=== PATIENT | male | born 1945 | race Caucasian/White ===

== ENCOUNTER → 2016-06-05 | Outpatient (CLI) | payer MEDICARE, OTHER ==
[~2016-06-05] MED LIST: ACET-2247 PO; DIVA500T35 PO; DIVA500T52 PO; LITH300C3 PO; LITH300CRT PO; MEGE400O4 PO; OLAN10TA3 PO; OLAN5TAB2 PO; PALI6 PO; PANT40TA25 PO; PREG50 PO
== END | disposition home or self-care (01) ==
LOC: RADPV 11:03
PROVIDERS: ATTEND Orthopaedic Surgery
DX: S52.131A Displaced fracture of neck of right radius, initial encounter for closed fracture (principal)

== ENCOUNTER → 2016-06-27 | Outpatient (CLI) | payer MEDICARE, OTHER | END | disposition home or self-care (01) | LOC: RADPV 13:50 | PROVIDERS: ATTEND Orthopaedic Surgery | DX: S52.124D Nondisplaced fracture of head of right radius, subsequent encounter for closed fracture with routine healing (principal) ==

== ENCOUNTER 2016-07-18 15:24 | Inpatient (IN) | payer MEDICARE, MEDICAID ==
[~2016-07-18] VITALS: Ht 167.6 cm; Wt 63.5 kg
[~2016-07-18 15:24] MED LIST changes: -ACET-2247 PO; -DIVA500T35 PO; -LITH300C3 PO; -MEGE400O4 PO; -OLAN10TA3 PO; -OLAN5TAB2 PO; -PANT40TA25 PO
[2016-07-18] MEDS ORDERED: OLAN5TAB2 PO (16:05)
[2016-07-18 16:09] LABS: BASOPHILS % (AUTO) 0.3 % (0.0-2.0); EOSINOPHILS % (AUTO) 1.1 % (1.0-6.0); HEMATOCRIT 44.4 % (41-53); HEMOGLOBIN 14.8 g/dL (13.5-17.5); LYMPHOCYTES # (AUTO) 0.9 K/uL (1.0-4.8); LYMPHOCYTES % (AUTO) 14.8 % (22.0-44.0); MEAN CORPUSCULAR HEMOGLOBIN 31.1 pg (26.0-34.0); MEAN CORPUSCULAR HGB CONC 33.4 G/dL (31.0-37.0); MEAN CORPUSCULAR VOLUME 93 fL (80-100); MONOCYTES # (AUTO) 0.4 K/uL (0.1-1.0); MONOCYTES % (AUTO) 6.4 % (2.0-9.0); NEUTROPHILS # (AUTO) 4.8 K/uL (1.8-7.7); NEUTROPHILS % (AUTO) 77.4 % (40.0-70.0); PLATELET COUNT (AUTO) 143 K/uL (150-450); RED BLOOD CELL COUNT(AUTO) 4.76 MIL/uL (4.50-5.90); RED CELL DISTRIBUTION WIDTH 12.9 % (11.5-14.5); WHITE BLOOD COUNT (AUTO) 6.2 K/uL (4.5-11.0)
[2016-07-18 16:26] LABS: ANION GAP 8 mmol/L (8-16); CARBON DIOXIDE 28 mmol/L (22-29); CHLORIDE 106 mmol/L (98-107); GLOMERULAR FILTR. RATE CALC 46 mL/min (>60); SODIUM SERUM 142 mmol/L (136-145); UREA NITROGEN, BLOOD 17 mg/dL (7-18)
[2016-07-18] MEDS ORDERED: LORazepam 2 MG TABLET PO PRN (16:45)
[2016-07-18] MEDS ORDERED: HALOPERIDOL 5 MG TABLET PO PRN (16:45)
[2016-07-18 16:47] LABS: ALANINE AMINOTRANSFERASE 16 U/L (12-78); ALBUMIN 3.8 g/dL (3.4-5.0); ASPARTATE AMINOTRANSFERASE 16 U/L (15-37); BILIRUBIN,TOTAL 0.5 mg/dL (0.1-1.0); TOTAL PROTEIN, SERUM 7.2 g/dL (6.4-8.2)
[2016-07-18 16:54] LABS: VALPROIC ACID < 3 mcg/mL (50-100)
[2016-07-18] MEDS ORDERED: LORazepam 1 MG TABLET PO ONE ×2 (17:00→19:30)
[2016-07-18 17:10] LABS: LITHIUM < 0.20 mmol/L (0.60-1.20)
[2016-07-18] MEDS ORDERED: CloNIDine HCL 0.1 MG TABLET PO ONE (17:45)
[2016-07-18 20:29] VITALS: BP 107/71
[2016-07-18 20:38] VITALS: BP 107/64
[2016-07-19 06:32] VITALS: BP 111/72
[2016-07-19 08:16] VITALS: BP 101/60
[2016-07-19 16:02] VITALS: BP 137/77
[2016-07-19] MEDS: LITHIUM CARBONATE 300 MG ER TABLET PO SCH (17:45)
[2016-07-19] MEDS: OLANZapine 10 MG TABLET PO SCH (17:45)
[2016-07-19] MEDS: DIVALPROEX SODIUM 500 MG ER TABLET PO SCH (20:51)
[2016-07-19] MEDS ORDERED: IBUPROFEN 400 MG TABLET PO PRN (21:15)
[2016-07-19] MEDS ORDERED: ACETAMINOPHEN 325 MG TABLET PO PRN (21:15)
[2016-07-19] MEDS ORDERED: ALBUTEROL SULFATE HFA 90 MCG/PUFF 8 GM INHALER IH PRN (21:15)
[2016-07-20 01:00] VITALS: BP 130/82
[2016-07-20] MEDS: ZOLPIDEM TARTRATE 10 MG TABLET PO PRN (01:05)
[2016-07-20 08:01] VITALS: BP 131/74
[2016-07-20] MEDS: OLANZapine 10 MG TABLET PO SCH (09:00)
[2016-07-20] MEDS: LITHIUM CARBONATE 300 MG ER TABLET PO SCH ×2 (09:00→16:48)
[2016-07-20 16:01] VITALS: BP 132/72
[2016-07-20] MEDS: DIVALPROEX SODIUM 500 MG ER TABLET PO SCH (20:45)
[2016-07-21 04:49] VITALS: BP 141/78
[2016-07-21 08:02] VITALS: BP 110/60
[2016-07-21] MEDS: LITHIUM CARBONATE 300 MG ER TABLET PO SCH ×2 (09:00→17:00)
[2016-07-21] MEDS: OLANZapine 10 MG TABLET PO SCH (09:00)
[2016-07-21 16:07] VITALS: BP 139/100
[2016-07-21] MEDS: DIVALPROEX SODIUM 500 MG ER TABLET PO SCH (20:27)
[2016-07-21] MEDS: ZOLPIDEM TARTRATE 10 MG TABLET PO PRN (20:58)
[2016-07-22 01:55] VITALS: BP 132/84
[2016-07-22 08:02] VITALS: BP 120/87
[2016-07-22] MEDS: LITHIUM CARBONATE 300 MG ER TABLET PO SCH ×2 (09:00→17:00)
[2016-07-22] MEDS: OLANZapine 10 MG TABLET PO SCH (09:00)
[2016-07-22] MEDS ORDERED: PERMETHRIN 1% 60 ML LOTION TP ONE (16:30)
[2016-07-22] MEDS: LORazepam 1 MG TABLET PO PRN (17:05)
[2016-07-22 19:03] VITALS: BP 120/76
[2016-07-22] MEDS: DIVALPROEX SODIUM 500 MG ER TABLET PO SCH (20:58)
[2016-07-22] MEDS: DiphenhydrAMINE/ZINC ACET 30 GM CREAM TP PRN (22:41)
[2016-07-23 00:21] VITALS: BP 130/80
[2016-07-23 08:01] VITALS: BP 120/70
[2016-07-23] MEDS: LITHIUM CARBONATE 300 MG ER TABLET PO SCH ×2 (09:00→17:00)
[2016-07-23] MEDS: OLANZapine 10 MG TABLET PO SCH (09:00)
[2016-07-23 16:01] VITALS: BP 135/85
[2016-07-23] MEDS: LORazepam 1 MG TABLET PO PRN ×2 (17:35→21:40)
[2016-07-23] MEDS: DIVALPROEX SODIUM 500 MG ER TABLET PO SCH (21:00)
[2016-07-24 07:23] VITALS: BP 129/83
[2016-07-24 08:28] VITALS: BP 128/81
[2016-07-24] MEDS: LITHIUM CARBONATE 300 MG ER TABLET PO SCH ×2 (08:35→17:00)
[2016-07-24] MEDS: OLANZapine 10 MG TABLET PO SCH (08:35)
[2016-07-24 10:35] VITALS: BP 148/81
[2016-07-24] MEDS: DiphenhydrAMINE/ZINC ACET 30 GM CREAM TP PRN (10:52)
[2016-07-24 19:41] VITALS: BP 137/82
[2016-07-24] MEDS: DIVALPROEX SODIUM 500 MG ER TABLET PO SCH (20:34)
[2016-07-25 06:36] VITALS: BP 137/77
[2016-07-25] MEDS: LITHIUM CARBONATE 300 MG ER TABLET PO SCH ×2 (09:00→17:00)
[2016-07-25] MEDS: OLANZapine 10 MG TABLET PO SCH (09:00)
[2016-07-25] MEDS: DOCUSATE SODIUM 100 MG CAPSULE PO PRN (09:52)
[2016-07-25] MEDS ORDERED: MAGNESIUM HYDROXIDE SUSPENSION 30 ML UDCUP PO PRN (16:00)
[2016-07-25 16:01] VITALS: BP 139/80
[2016-07-25] MEDS: MAGNESIUM HYDROXIDE SUSPENSION 30 ML UDCUP PO PRN (17:03)
[2016-07-25] MEDS: DIVALPROEX SODIUM 500 MG ER TABLET PO SCH (20:38)
[2016-07-26 06:26] VITALS: BP 129/75
[2016-07-26 08:19] VITALS: BP 163/79
[2016-07-26] MEDS: OLANZapine 10 MG TABLET PO SCH (08:33)
[2016-07-26] MEDS: LITHIUM CARBONATE 300 MG ER TABLET PO SCH ×2 (08:33→17:00)
[2016-07-26 16:03] VITALS: BP 134/84
[2016-07-26] MEDS: DIVALPROEX SODIUM 500 MG ER TABLET PO SCH (21:00)
[2016-07-27 05:42] VITALS: BP 137/87
[2016-07-27 08:20] VITALS: BP 144/88
[2016-07-27] MEDS: LITHIUM CARBONATE 300 MG ER TABLET PO SCH ×2 (09:00→17:00)
[2016-07-27] MEDS: OLANZapine 10 MG TABLET PO SCH (09:00)
[2016-07-27 16:35] VITALS: BP 147/83
[2016-07-27] MEDS: DIVALPROEX SODIUM 500 MG ER TABLET PO SCH (20:35)
[2016-07-27] MEDS: ZOLPIDEM TARTRATE 10 MG TABLET PO PRN (20:48)
[2016-07-28] MEDS: OLANZapine 10 MG TABLET PO SCH ×2 (08:15→09:00)
[2016-07-28] MEDS: LITHIUM CARBONATE 300 MG ER TABLET PO SCH ×3 (08:15→17:00)
[2016-07-28] MEDS: ZOLPIDEM TARTRATE 10 MG TABLET PO PRN (20:51)
[2016-07-28] MEDS: DIVALPROEX SODIUM 500 MG ER TABLET PO SCH (21:00)
[2016-07-29 05:14] VITALS: BP 129/85
[2016-07-29 08:01] VITALS: BP 137/92
[2016-07-29] MEDS: OLANZapine 10 MG TABLET PO SCH (09:00)
[2016-07-29] MEDS: LITHIUM CARBONATE 300 MG ER TABLET PO SCH ×2 (09:00→16:35)
[2016-07-29 16:00] VITALS: BP 140/93
[2016-07-29] MEDS: DIVALPROEX SODIUM 500 MG ER TABLET PO SCH (20:12)
[2016-07-30 08:09] VITALS: BP 132/81
[2016-07-30] MEDS ORDERED: ONDANSETRON HCL 4 MG TABLET PO PRN (08:30)
[2016-07-30] MEDS: OLANZapine 10 MG TABLET PO SCH (09:00)
[2016-07-30] MEDS: LITHIUM CARBONATE 300 MG ER TABLET PO SCH ×2 (09:00→16:33)
[2016-07-30 16:02] VITALS: BP 144/88
[2016-07-30] MEDS: DiphenhydrAMINE/ZINC ACET 30 GM CREAM TP PRN (19:00)
[2016-07-30] MEDS: MAGNESIUM HYDROXIDE SUSPENSION 30 ML UDCUP PO PRN (20:15)
[2016-07-30] MEDS: DIVALPROEX SODIUM 500 MG ER TABLET PO SCH (20:45)
[2016-07-30] MEDS: LORazepam 1 MG TABLET PO PRN (22:42)
[2016-07-31 00:16] VITALS: BP 101/62
[2016-07-31] MEDS: DOCUSATE SODIUM 100 MG CAPSULE PO PRN (06:06)
[2016-07-31 08:25] VITALS: BP 106/64
[2016-07-31] MEDS: OLANZapine 10 MG TABLET PO SCH (09:00)
[2016-07-31] MEDS: LITHIUM CARBONATE 300 MG ER TABLET PO SCH ×2 (09:00→17:00)
[2016-07-31] MEDS: MAGNESIUM HYDROXIDE SUSPENSION 30 ML UDCUP PO PRN (09:42)
[2016-07-31 16:01] VITALS: BP 130/87
[2016-07-31] MEDS: DIVALPROEX SODIUM 500 MG ER TABLET PO SCH (20:36)
[2016-08-01 00:40] VITALS: BP 121/85
[2016-08-01] MEDS: LITHIUM CARBONATE 300 MG ER TABLET PO SCH ×2 (08:20→17:00)
[2016-08-01 08:21] VITALS: BP 143/79
[2016-08-01] MEDS: OLANZapine 10 MG TABLET PO SCH (08:21)
== END 2016-08-01 18:00 | disposition home or self-care (01) | DRG 885 ==
LOC: EMS 15:25 → B2X 17:09
PROVIDERS: ADMIT Psychiatry & Neurology Psychiatry; ATTEND Psychiatry & Neurology Psychiatry
DX: F25.9 Schizoaffective disorder, unspecified (principal); R45.851 Suicidal ideations; G47.00 Insomnia, unspecified; I10 Essential (primary) hypertension; Z96.641 Presence of right artificial hip joint; J44.9 Chronic obstructive pulmonary disease, unspecified; K21.9 Gastro-esophageal reflux disease without esophagitis; F22 Delusional disorders; F17.210 Nicotine dependence, cigarettes, uncomplicated; F32.9 Major depressive disorder, single episode, unspecified; Z53.29 Procedure and treatment not carried out because of patient's decision for other reasons; Z87.81 Personal history of (healed) traumatic fracture; Z85.828 Personal history of other malignant neoplasm of skin; Z79.899 Other long term (current) drug therapy
CPT/HCPCS: 99285; G0480; Q0162

== ENCOUNTER 2016-08-13 16:26 | Inpatient (IN) | payer MEDICARE, MEDICAID ==
[~2016-08-13] VITALS: Ht 170.2 cm; Wt 54.4 kg
[2016-08-13] MEDS ORDERED: SODIUM CHLORIDE 0.9% 1,000 ML IV ONE (17:30)
[2016-08-13 18:02] LABS: BASOPHILS % (AUTO) 0.2 % (0.0-2.0); EOSINOPHILS % (AUTO) 0.3 % (1.0-6.0); HEMATOCRIT 53.9 % (41-53); HEMOGLOBIN 17.7 g/dL (13.5-17.5); LYMPHOCYTES # (AUTO) 0.9 K/uL (1.0-4.8); LYMPHOCYTES % (AUTO) 10.9 % (22.0-44.0); MEAN CORPUSCULAR HEMOGLOBIN 30.5 pg (26.0-34.0); MEAN CORPUSCULAR HGB CONC 32.8 G/dL (31.0-37.0); MEAN CORPUSCULAR VOLUME 93 fL (80-100); MONOCYTES # (AUTO) 0.5 K/uL (0.1-1.0); MONOCYTES % (AUTO) 6.3 % (2.0-9.0); NEUTROPHILS # (AUTO) 7.1 K/uL (1.8-7.7); NEUTROPHILS % (AUTO) 82.3 % (40.0-70.0); RED CELL DISTRIBUTION WIDTH 12.6 % (11.5-14.5); WHITE BLOOD COUNT (AUTO) 8.6 K/uL (4.5-11.0)
[2016-08-13 18:21] LABS: PLATELET COUNT (AUTO) 182 K/uL (150-450)
[2016-08-13 20:07] LABS: APPEARANCE,URINE CLEAR (CLEAR); GLUCOSE, URINE (UA) NEGATIVE (NEGATIVE); KETONES,URINE 40 mg/dL (NEGATIVE); LEUKOCYTE ESTERASE ,URINE NEGATIVE (NEGATIVE); OCCULT BLOOD,URINE NEGATIVE (NEGATIVE); PROTEIN,URINE POS 1+ (NEGATIVE)
[2016-08-13 20:10] LABS: ADD UA MICROSCOPIC NO
[2016-08-13] MEDS ORDERED: ZOLPIDEM TARTRATE 10 MG TABLET PO PRN (21:45)
[2016-08-13] MEDS ORDERED: LORazepam 2 MG TABLET PO PRN (21:45)
[2016-08-13] MEDS ORDERED: HALOPERIDOL 5 MG TABLET PO PRN (21:45)
[2016-08-13 21:57] LABS: ANION GAP 21 mmol/L (8-16); CALCIUM, TOTAL 11.3 mg/dL (8.8-10.5); CARBON DIOXIDE 22 mmol/L (22-29); CHLORIDE 100 mmol/L (98-107); CREATININE 1.81 mg/dL (0.60-1.30); GLOMERULAR FILTR. RATE CALC 37 mL/min (>60); SODIUM SERUM 143 mmol/L (136-145); UREA NITROGEN, BLOOD 43 mg/dL (7-18)
[2016-08-13 22:04] LABS: ALANINE AMINOTRANSFERASE 21 U/L (12-78); ALBUMIN 4.4 g/dL (3.4-5.0); ASPARTATE AMINOTRANSFERASE 26 U/L (15-37); BILIRUBIN,TOTAL 0.9 mg/dL (0.1-1.0); TOTAL PROTEIN, SERUM 8.7 g/dL (6.4-8.2)
[2016-08-14 01:22] VITALS: BP 166/108
[2016-08-14 08:44] VITALS: BP 141/91
[2016-08-14 17:00] VITALS: BP 158/87
[2016-08-14] MEDS ORDERED: ALBUTEROL SULFATE HFA 90 MCG/PUFF 8 GM INHALER IH PRN (20:00)
[2016-08-14] MEDS ORDERED: ACETAMINOPHEN 325 MG TABLET PO PRN (20:00)
[2016-08-14] MEDS ORDERED: IBUPROFEN 400 MG TABLET PO PRN (20:00)
[2016-08-14] MEDS: OLANZapine 10 MG TABLET PO SCH (21:00)
[2016-08-14] MEDS: AmLODIPine BESYLATE 5 MG TABLET PO SCH (21:00)
[2016-08-14] MEDS: LITHIUM CARBONATE 300 MG CAPSULE PO SCH (21:00)
[2016-08-14] MEDS: DIVALPROEX SODIUM 500 MG DR TABLET PO SCH (21:00)
[2016-08-15 16:59] VITALS: BP 113/77
[2016-08-15] MEDS: LITHIUM CARBONATE 300 MG CAPSULE PO SCH (20:36)
[2016-08-15] MEDS: DIVALPROEX SODIUM 500 MG DR TABLET PO SCH (20:36)
[2016-08-15] MEDS: AmLODIPine BESYLATE 5 MG TABLET PO SCH (20:37)
[2016-08-15] MEDS: OLANZapine 10 MG TABLET PO SCH (20:37)
[2016-08-16 08:30] VITALS: BP 121/76
[2016-08-16] MEDS: OLANZapine 10 MG TABLET PO SCH (21:00)
[2016-08-16] MEDS: LITHIUM CARBONATE 300 MG CAPSULE PO SCH (21:00)
[2016-08-16] MEDS: AmLODIPine BESYLATE 5 MG TABLET PO SCH (21:00)
[2016-08-16] MEDS: DIVALPROEX SODIUM 500 MG DR TABLET PO SCH (21:00)
[2016-08-16 22:14] VITALS: BP 121/86
[2016-08-17 09:49] VITALS: BP 148/86
[2016-08-17 16:44] VITALS: BP 122/89
[2016-08-17] MEDS: LITHIUM CARBONATE 300 MG CAPSULE PO SCH (21:00)
[2016-08-17] MEDS: OLANZapine 10 MG TABLET PO SCH (21:00)
[2016-08-17] MEDS: DIVALPROEX SODIUM 500 MG DR TABLET PO SCH (21:00)
[2016-08-17] MEDS: AmLODIPine BESYLATE 5 MG TABLET PO SCH (21:00)
[2016-08-18 10:40] VITALS: BP 123/68
[2016-08-18 17:21] VITALS: BP 125/72
[2016-08-18] MEDS: DIVALPROEX SODIUM 500 MG DR TABLET PO SCH (21:00)
[2016-08-18] MEDS: AmLODIPine BESYLATE 5 MG TABLET PO SCH (21:00)
[2016-08-18] MEDS: LITHIUM CARBONATE 300 MG CAPSULE PO SCH (21:00)
[2016-08-18] MEDS: OLANZapine 10 MG TABLET PO SCH (21:00)
[2016-08-19 10:06] VITALS: BP 130/77
[2016-08-19 19:46] VITALS: BP 139/81
[2016-08-19] MEDS: DIVALPROEX SODIUM 500 MG DR TABLET PO SCH (21:00)
[2016-08-19] MEDS: LITHIUM CARBONATE 300 MG CAPSULE PO SCH (21:00)
[2016-08-19] MEDS: AmLODIPine BESYLATE 5 MG TABLET PO SCH (21:00)
[2016-08-19] MEDS: OLANZapine 10 MG TABLET PO SCH (21:00)
[2016-08-20 05:01] VITALS: BP 135/78
[2016-08-20 09:33] VITALS: BP 110/76
[2016-08-20 16:37] VITALS: BP 133/75
[2016-08-20] MEDS: AmLODIPine BESYLATE 5 MG TABLET PO SCH (21:00)
[2016-08-20] MEDS: DIVALPROEX SODIUM 500 MG DR TABLET PO SCH (21:00)
[2016-08-20] MEDS: LITHIUM CARBONATE 300 MG CAPSULE PO SCH (21:00)
[2016-08-20] MEDS: OLANZapine 10 MG TABLET PO SCH (21:00)
[2016-08-21 08:30] VITALS: BP 126/78
[2016-08-21 16:15] VITALS: BP 126/81
[2016-08-21] MEDS: DIVALPROEX SODIUM 500 MG DR TABLET PO SCH (20:27)
[2016-08-21] MEDS: LITHIUM CARBONATE 300 MG CAPSULE PO SCH (20:27)
[2016-08-21] MEDS: AmLODIPine BESYLATE 5 MG TABLET PO SCH (20:27)
[2016-08-21] MEDS: OLANZapine 10 MG TABLET PO SCH (20:28)
[2016-08-22 08:00] VITALS: BP 136/98
[2016-08-22 16:00] VITALS: BP 133/100
[2016-08-22] MEDS: DIVALPROEX SODIUM 500 MG DR TABLET PO SCH (20:02)
[2016-08-22] MEDS: LITHIUM CARBONATE 300 MG CAPSULE PO SCH (20:02)
[2016-08-22] MEDS: AmLODIPine BESYLATE 5 MG TABLET PO SCH (20:02)
[2016-08-22] MEDS: OLANZapine 10 MG TABLET PO SCH (20:03)
[2016-08-23 20:11] VITALS: BP 143/86
[2016-08-23] MEDS: AmLODIPine BESYLATE 5 MG TABLET PO SCH (20:47)
[2016-08-23] MEDS: OLANZapine 10 MG TABLET PO SCH (20:47)
[2016-08-23] MEDS: LITHIUM CARBONATE 300 MG CAPSULE PO SCH (20:47)
[2016-08-23] MEDS: DIVALPROEX SODIUM 500 MG DR TABLET PO SCH (20:47)
[2016-08-24 17:00] VITALS: BP 128/79
[2016-08-24] MEDS: DIVALPROEX SODIUM 500 MG DR TABLET PO SCH (21:00)
[2016-08-24] MEDS: OLANZapine 10 MG TABLET PO SCH (21:00)
[2016-08-24] MEDS: LITHIUM CARBONATE 300 MG CAPSULE PO SCH (21:00)
[2016-08-24] MEDS: AmLODIPine BESYLATE 5 MG TABLET PO SCH (21:00)
[2016-08-25 05:37] VITALS: BP 118/75
[2016-08-25 08:30] VITALS: BP 138/88
[2016-08-25] MEDS: DIVALPROEX SODIUM 500 MG DR TABLET PO SCH (20:16)
[2016-08-25] MEDS: AmLODIPine BESYLATE 5 MG TABLET PO SCH (20:16)
[2016-08-25] MEDS: OLANZapine 10 MG TABLET PO SCH (20:16)
[2016-08-25] MEDS: LITHIUM CARBONATE 300 MG CAPSULE PO SCH (20:16)
[2016-08-25 22:00] VITALS: BP 140/108
[2016-08-26 08:30] VITALS: BP 144/88
[2016-08-26 16:48] VITALS: BP 112/78
[2016-08-26] MEDS: DIVALPROEX SODIUM 500 MG DR TABLET PO SCH (20:59)
[2016-08-26] MEDS: LITHIUM CARBONATE 300 MG CAPSULE PO SCH (20:59)
[2016-08-26] MEDS: OLANZapine 10 MG TABLET PO SCH (21:00)
[2016-08-26] MEDS: AmLODIPine BESYLATE 5 MG TABLET PO SCH (21:00)
[2016-08-27 10:32] VITALS: BP 152/78
[2016-08-27 17:00] VITALS: BP 109/72
[2016-08-27] MEDS: DIVALPROEX SODIUM 500 MG DR TABLET PO SCH (21:00)
[2016-08-27] MEDS: OLANZapine 10 MG TABLET PO SCH (21:00)
[2016-08-27] MEDS: LITHIUM CARBONATE 300 MG CAPSULE PO SCH (21:00)
[2016-08-27] MEDS: AmLODIPine BESYLATE 5 MG TABLET PO SCH (21:00)
[2016-08-28 13:09] VITALS: BP 129/82
[2016-08-28 17:00] VITALS: BP 123/73
[2016-08-28] MEDS: LITHIUM CARBONATE 300 MG CAPSULE PO SCH (21:00)
[2016-08-28] MEDS: DIVALPROEX SODIUM 500 MG DR TABLET PO SCH (21:00)
[2016-08-28] MEDS: AmLODIPine BESYLATE 5 MG TABLET PO SCH (21:00)
[2016-08-28] MEDS: OLANZapine 10 MG TABLET PO SCH (21:00)
[2016-08-28] MEDS: HALOPERIDOL LACTATE 5 MG/ML VIAL IM PRN (21:35)
[2016-08-29 08:15] VITALS: BP 146/94
[2016-08-29 16:34] VITALS: BP 142/87
[2016-08-29] MEDS: LITHIUM CARBONATE 300 MG CAPSULE PO SCH (21:00)
[2016-08-29] MEDS: OLANZapine 10 MG TABLET PO SCH (21:00)
[2016-08-29] MEDS: DIVALPROEX SODIUM 500 MG DR TABLET PO SCH (21:00)
[2016-08-29] MEDS: AmLODIPine BESYLATE 5 MG TABLET PO SCH (21:00)
[2016-08-29] MEDS: HALOPERIDOL LACTATE 5 MG/ML VIAL IM PRN (21:04)
[2016-08-30 08:16] VITALS: BP 127/103
[2016-08-30 16:45] VITALS: BP 125/72
[2016-08-30] MEDS: DIVALPROEX SODIUM 500 MG DR TABLET PO SCH (20:48)
[2016-08-30] MEDS: OLANZapine 10 MG TABLET PO SCH (20:48)
[2016-08-30] MEDS: LITHIUM CARBONATE 300 MG CAPSULE PO SCH (20:48)
[2016-08-30] MEDS: AmLODIPine BESYLATE 5 MG TABLET PO SCH (20:48)
[2016-08-31 09:19] VITALS: BP 153/92
[2016-08-31] MEDS ORDERED: HALOPERIDOL LACTATE 5 MG/ML VIAL IM PRN (15:30)
[2016-08-31 19:12] VITALS: BP 132/82
[2016-08-31] MEDS: LITHIUM CARBONATE 300 MG CAPSULE PO SCH (21:00)
[2016-08-31] MEDS: DIVALPROEX SODIUM 500 MG DR TABLET PO SCH (21:00)
[2016-08-31] MEDS: AmLODIPine BESYLATE 5 MG TABLET PO SCH (21:00)
[2016-08-31] MEDS: OLANZapine 10 MG TABLET PO SCH (21:00)
[2016-09-01 08:15] VITALS: BP 104/62
[2016-09-01 16:32] VITALS: BP 129/73
== END 2016-09-01 17:45 | disposition short-term general hospital (02) | DRG 885 ==
LOC: EMS 16:28 → 3EX 22:30
PROVIDERS: ADMIT Psychiatry & Neurology Psychiatry; ATTEND Psychiatry & Neurology Psychiatry
DX: F33.3 Major depressive disorder, recurrent, severe with psychotic symptoms (principal); R45.851 Suicidal ideations; E46 Unspecified protein-calorie malnutrition; Z68.1 Body mass index [BMI] 19.9 or less, adult; I10 Essential (primary) hypertension; F25.9 Schizoaffective disorder, unspecified; F17.210 Nicotine dependence, cigarettes, uncomplicated; K21.9 Gastro-esophageal reflux disease without esophagitis; J44.9 Chronic obstructive pulmonary disease, unspecified; Z85.828 Personal history of other malignant neoplasm of skin; Z87.81 Personal history of (healed) traumatic fracture; Z79.899 Other long term (current) drug therapy
CPT/HCPCS: 96360; 99285; G0480; J1630; J7030

== ENCOUNTER 2016-09-01 17:40 | Inpatient (IN) | payer MEDICARE, OTHER ==
[~2016-09-01] VITALS: Ht 170.2 cm; Wt 58.4 kg
[2016-09-01 19:15] VITALS: BP 114/80
[2016-09-01] MEDS ORDERED: HALOPERIDOL LACTATE 5 MG/ML VIAL IM PRN (20:00)
[2016-09-01] MEDS ORDERED: HALOPERIDOL 5 MG TABLET PO PRN (20:00)
[2016-09-01] MEDS ORDERED: ZOLPIDEM TARTRATE 10 MG TABLET PO PRN (20:00)
[2016-09-01] MEDS ORDERED: LORazepam 2 MG TABLET PO PRN (20:00)
[2016-09-01] MEDS ORDERED: BISACODYL 10 MG RECTAL RECTAL SUPPOSITORY PR PRN (21:00)
[2016-09-01] MEDS ORDERED: MAGNESIUM HYDROXIDE SUSPENSION 30 ML UDCUP PO PRN (21:00)
[2016-09-01] MEDS ORDERED: ONDANSETRON HCL 4 MG/2 ML VIAL IVP PRN (21:00)
[2016-09-01] MEDS ORDERED: MORPHINE SULFATE 2 MG/ML SYRINGE IVP PRN (21:00)
[2016-09-01] MEDS: DOCUSATE SODIUM 100 MG CAPSULE PO SCH (21:00)
[2016-09-01] MEDS ORDERED: ACETAMINOPHEN 325 MG TABLET PO PRN (21:00)
[2016-09-01] MEDS ORDERED: HYDROCODONE/ACETAMINOPHEN 5-325 MG TABLET PO PRN (21:00)
[2016-09-01] MEDS ORDERED: ZOLPIDEM TARTRATE 5 MG TABLET PO PRN (21:00)
[2016-09-01 21:32] LABS: BASOPHILS # (AUTO) 0.02 K/uL (0.00-0.20); BASOPHILS % (AUTO) 0.3 % (0.0-2.0); EOSINOPHILS # (AUTO) 0.11 K/uL (0.00-0.70); HEMATOCRIT 44.1 % (41-53); HEMOGLOBIN 14.8 g/dL (13.5-17.5); LYMPHOCYTES % (AUTO) 31.7 % (22.0-44.0); MEAN CORPUSCULAR HEMOGLOBIN 31.5 pg (26.0-34.0); MEAN CORPUSCULAR HGB CONC 33.6 G/dL (31.0-37.0); MEAN CORPUSCULAR VOLUME 94 fL (80-100); MONOCYTES # (AUTO) 0.5 K/uL (0.1-1.0); MONOCYTES % (AUTO) 7.4 % (2.0-9.0); NEUTROPHILS # (AUTO) 3.7 K/uL (1.8-7.7); PLATELET COUNT (AUTO) 140 K/uL (150-450); RED CELL DISTRIBUTION WIDTH 13.3 % (11.5-14.5); WHITE BLOOD COUNT (AUTO) 6.3 K/uL (4.5-11.0)
[2016-09-01 21:43] LABS: CALCIUM, TOTAL 9.3 mg/dL (8.8-10.5); CREATININE 1.88 mg/dL (0.60-1.30); POTASSIUM 4.1 mmol/L (3.5-5.1)
[2016-09-01] MEDS ORDERED: 0.9% SODIUM CHLORIDE 10 ML SYRINGE IVP PRN (21:45)
[2016-09-01 21:49] LABS: ALBUMIN 3.7 g/dL (3.4-5.0); BILIRUBIN,TOTAL 0.6 mg/dL (0.1-1.0); TOTAL PROTEIN, SERUM 6.8 g/dL (6.4-8.2)
[2016-09-01] MEDS ORDERED: MAGNESIUM SULFATE 2 GM, MVI, ADULT NO.1 WITH VIT K 10 ML, THIAMINE HCL 100 MG, FOLIC AC... IV ONE ×5 (22:00)
[2016-09-01] MEDS: DIVALPROEX SODIUM 500 MG DR TABLET PO SCH (22:24)
[2016-09-01] MEDS: LITHIUM CARBONATE 300 MG CAPSULE PO SCH (22:24)
[2016-09-01] MEDS: OLANZapine 10 MG TABLET PO SCH (22:24)
[2016-09-01 23:08] VITALS: BP 127/83
[2016-09-02] MEDS: HEPARIN SODIUM,PORCINE 5,000 UNITS/ML VIAL SQ SCH ×4 (00:21→23:54)
[2016-09-02 05:15] VITALS: BP 118/74
[2016-09-02 07:45] VITALS: BP 120/81
[2016-09-02] MEDS: PANTOPRAZOLE SODIUM 40 MG DR TABLET PO SCH (09:13)
[2016-09-02] MEDS: DOCUSATE SODIUM 100 MG CAPSULE PO SCH ×2 (09:13→20:28)
[2016-09-02] MEDS ORDERED: SODIUM CHLORIDE 0.9% 1,000 ML IV ONE ×2 (10:46→11:15)
[2016-09-02] MEDS ORDERED: POTASSIUM CHLORIDE 20 MEQ ER TABLET PO PRN (11:15)
[2016-09-02] MEDS ORDERED: POTASSIUM CHL 10 MEQ/WATER 50 ML IV PRN (11:15)
[2016-09-02 11:44] VITALS: BP 124/80
[2016-09-02 14:25] LABS: APPEARANCE,URINE CLEAR (CLEAR); GLUCOSE, URINE (UA) NEGATIVE (NEGATIVE); KETONES,URINE NEGATIVE (NEGATIVE); LEUKOCYTE ESTERASE ,URINE NEGATIVE (NEGATIVE); OCCULT BLOOD,URINE NEGATIVE (NEGATIVE); PROTEIN,URINE NEGATIVE (NEGATIVE)
[2016-09-02 14:26] LABS: RBC,URINE None Seen /HPF (0-2); WBC,URINE None Seen /HPF (0-5)
[2016-09-02 15:54] VITALS: BP 119/69
[2016-09-02] MEDS: MEGESTROL ACETATE 400 MG/10 ML SUSPENSION UDCUP PO SCH ×2 (16:25→20:28)
[2016-09-02] MEDS: OLANZapine 10 MG TABLET PO SCH (20:29)
[2016-09-02] MEDS: LITHIUM CARBONATE 300 MG CAPSULE PO SCH (20:29)
[2016-09-02] MEDS: DIVALPROEX SODIUM 500 MG DR TABLET PO SCH (20:29)
[2016-09-02 20:56] VITALS: BP 149/83
[2016-09-03 00:46] VITALS: BP 132/79
[2016-09-03 05:02] VITALS: BP 124/60
[2016-09-03] MEDS: HEPARIN SODIUM,PORCINE 5,000 UNITS/ML VIAL SQ SCH ×5 (08:00→23:45)
[2016-09-03] MEDS: DOCUSATE SODIUM 100 MG CAPSULE PO SCH ×2 (08:05→19:59)
[2016-09-03] MEDS: MEGESTROL ACETATE 400 MG/10 ML SUSPENSION UDCUP PO SCH ×2 (08:06→19:58)
[2016-09-03] MEDS: PANTOPRAZOLE SODIUM 40 MG DR TABLET PO SCH (08:06)
[2016-09-03 11:34] VITALS: BP 133/78
[2016-09-03] MEDS ORDERED: MAGNESIUM SULFATE 2 GM, MVI, ADULT NO.1 WITH VIT K 10 ML, THIAMINE HCL 100 MG, FOLIC AC... IV ONE ×5 (14:45)
[2016-09-03 19:29] VITALS: BP 116/73
[2016-09-03] MEDS: LITHIUM CARBONATE 300 MG CAPSULE PO SCH (19:58)
[2016-09-03] MEDS: OLANZapine 10 MG TABLET PO SCH (19:59)
[2016-09-03] MEDS: DIVALPROEX SODIUM 500 MG DR TABLET PO SCH (19:59)
[2016-09-03 23:54] VITALS: BP 131/75
[2016-09-04 04:00] VITALS: BP 121/70
[2016-09-04 07:22] VITALS: BP 108/58
[2016-09-04] MEDS: HEPARIN SODIUM,PORCINE 5,000 UNITS/ML VIAL SQ SCH ×3 (08:00→15:15)
[2016-09-04 08:52] LABS: CALCIUM, TOTAL 8.6 mg/dL (8.8-10.5); CREATININE 1.4 mg/dL (0.60-1.30); POTASSIUM 3.7 mmol/L (3.5-5.1)
[2016-09-04] MEDS: DOCUSATE SODIUM 100 MG CAPSULE PO SCH (09:05)
[2016-09-04] MEDS: PANTOPRAZOLE SODIUM 40 MG DR TABLET PO SCH (09:05)
[2016-09-04] MEDS: MEGESTROL ACETATE 400 MG/10 ML SUSPENSION UDCUP PO SCH (09:05)
[2016-09-04 11:18] VITALS: BP 124/63
[2016-09-04 15:31] VITALS: BP 120/65
[2016-09-04] MEDS ORDERED: DIVA500T35 PO (16:12)
[2016-09-04] MEDS ORDERED: LITH300C3 PO (16:12)
[2016-09-04] MEDS ORDERED: MEGE400O4 PO (16:13)
[2016-09-04] MEDS ORDERED: OLAN10TA3 PO (16:14)
[2016-09-04] MEDS ORDERED: PANT40TA25 PO (16:14)
[2016-09-04] MEDS ORDERED: ACET-2247 PO (16:15)
== END 2016-09-04 16:50 | DRG 682 ==
LOC: 6N 17:40
PROVIDERS: ADMIT Internal Medicine; ATTEND Internal Medicine
DX: N17.0 Acute kidney failure with tubular necrosis (principal); E43 Unspecified severe protein-calorie malnutrition; E46 Unspecified protein-calorie malnutrition; E86.0 Dehydration; J44.9 Chronic obstructive pulmonary disease, unspecified; F25.9 Schizoaffective disorder, unspecified; K21.9 Gastro-esophageal reflux disease without esophagitis; I10 Essential (primary) hypertension; F32.9 Major depressive disorder, single episode, unspecified; F17.210 Nicotine dependence, cigarettes, uncomplicated; Z53.29 Procedure and treatment not carried out because of patient's decision for other reasons; Z91.19 Patient's noncompliance with other medical treatment and regimen; Z85.828 Personal history of other malignant neoplasm of skin; Z87.81 Personal history of (healed) traumatic fracture; Z68.20 Body mass index [BMI] 20.0-20.9, adult
CPT/HCPCS: 87081; J1644; J3411; J3475; J3490; J7030

== ENCOUNTER 2016-09-04 17:22 | Inpatient (IN) | payer MEDICARE, MEDICAID ==
[~2016-09-04 17:22] MED LIST changes: +ACET-2247 PO; +DIVA500T35 PO; -DIVA500T52 PO; +LITH300C3 PO; -LITH300CRT PO; +MEGE400O4 PO; +OLAN10TA3 PO; -PALI6 PO; +PANT40TA25 PO; -PREG50 PO
[2016-09-04] MEDS ORDERED: HALOPERIDOL LACTATE 5 MG/ML VIAL IM PRN (17:30)
[2016-09-04] MEDS ORDERED: HALOPERIDOL 5 MG TABLET PO PRN (17:30)
[2016-09-04] MEDS ORDERED: LORazepam 2 MG TABLET PO PRN (17:30)
[2016-09-04 19:50] VITALS: BP 135/85
[2016-09-04 19:57] VITALS: BP 135/85
[2016-09-04] MEDS ORDERED: ACETAMINOPHEN 325 MG TABLET PO PRN (20:00)
[2016-09-04] MEDS: DIVALPROEX SODIUM 500 MG DR TABLET PO SCH (20:34)
[2016-09-04] MEDS: OLANZapine 10 MG TABLET PO SCH (20:34)
[2016-09-04] MEDS: LITHIUM CARBONATE 300 MG CAPSULE PO SCH (20:34)
[2016-09-05 08:10] VITALS: BP 122/69
[2016-09-05] MEDS: MEGESTROL ACETATE 400 MG/10 ML SUSPENSION UDCUP PO SCH ×2 (08:22→16:09)
[2016-09-05] MEDS: PANTOPRAZOLE SODIUM 40 MG DR TABLET PO SCH (08:22)
[2016-09-05 16:30] VITALS: BP 115/68
[2016-09-05] MEDS: LITHIUM CARBONATE 300 MG CAPSULE PO SCH (20:07)
[2016-09-05] MEDS: OLANZapine 10 MG TABLET PO SCH (20:08)
[2016-09-05] MEDS: DIVALPROEX SODIUM 500 MG DR TABLET PO SCH (20:08)
[2016-09-06] MEDS: MEGESTROL ACETATE 400 MG/10 ML SUSPENSION UDCUP PO SCH ×2 (08:40→16:16)
[2016-09-06] MEDS: PANTOPRAZOLE SODIUM 40 MG DR TABLET PO SCH (08:40)
[2016-09-06 08:46] VITALS: BP 135/86
[2016-09-06 16:30] VITALS: BP 107/60
[2016-09-06] MEDS ORDERED: PERMETHRIN 5% 60 GM CREAM TP ONE (19:30)
[2016-09-06] MEDS: LITHIUM CARBONATE 300 MG CAPSULE PO SCH (20:08)
[2016-09-06] MEDS: DIVALPROEX SODIUM 500 MG DR TABLET PO SCH (20:08)
[2016-09-06] MEDS: OLANZapine 10 MG TABLET PO SCH (20:09)
[2016-09-07 08:17] VITALS: BP 104/66
[2016-09-07] MEDS: PANTOPRAZOLE SODIUM 40 MG DR TABLET PO SCH (08:18)
[2016-09-07] MEDS: MEGESTROL ACETATE 400 MG/10 ML SUSPENSION UDCUP PO SCH ×2 (08:18→16:07)
[2016-09-07 17:27] VITALS: BP 117/78
[2016-09-07] MEDS: DIVALPROEX SODIUM 500 MG DR TABLET PO SCH (20:02)
[2016-09-07] MEDS: LITHIUM CARBONATE 300 MG CAPSULE PO SCH (20:02)
[2016-09-07] MEDS: OLANZapine 10 MG TABLET PO SCH (20:12)
[2016-09-08 08:11] VITALS: BP 118/66
[2016-09-08] MEDS: PANTOPRAZOLE SODIUM 40 MG DR TABLET PO SCH (09:08)
[2016-09-08] MEDS: MEGESTROL ACETATE 400 MG/10 ML SUSPENSION UDCUP PO SCH ×2 (09:08→16:15)
[2016-09-08 16:30] VITALS: BP 115/68
[2016-09-08] MEDS: DIVALPROEX SODIUM 500 MG DR TABLET PO SCH (20:14)
[2016-09-08] MEDS: LITHIUM CARBONATE 300 MG CAPSULE PO SCH (20:14)
[2016-09-08] MEDS: OLANZapine 10 MG TABLET PO SCH (20:14)
[2016-09-09] MEDS: PANTOPRAZOLE SODIUM 40 MG DR TABLET PO SCH (08:13)
[2016-09-09] MEDS: MEGESTROL ACETATE 400 MG/10 ML SUSPENSION UDCUP PO SCH ×2 (08:13→16:08)
[2016-09-09 08:26] VITALS: BP 141/78
[2016-09-09 16:41] VITALS: BP 100/60
[2016-09-09] MEDS: LITHIUM CARBONATE 300 MG CAPSULE PO SCH (22:07)
[2016-09-09] MEDS: OLANZapine 10 MG TABLET PO SCH (22:07)
[2016-09-09] MEDS: DIVALPROEX SODIUM 500 MG DR TABLET PO SCH (22:07)
[2016-09-10] MEDS: PANTOPRAZOLE SODIUM 40 MG DR TABLET PO SCH (08:08)
[2016-09-10] MEDS: MEGESTROL ACETATE 400 MG/10 ML SUSPENSION UDCUP PO SCH ×2 (08:10→16:20)
[2016-09-10 08:59] VITALS: BP 128/87
[2016-09-10] MEDS ORDERED: CALAMINE/ZINC OXIDE 177 ML LOTION TP PRN (15:15)
[2016-09-10 17:41] VITALS: BP 106/64
[2016-09-10] MEDS: LITHIUM CARBONATE 300 MG CAPSULE PO SCH (20:06)
[2016-09-10] MEDS: OLANZapine 10 MG TABLET PO SCH (20:06)
[2016-09-10] MEDS: DIVALPROEX SODIUM 500 MG DR TABLET PO SCH (20:12)
[2016-09-11 08:09] VITALS: BP 120/54
[2016-09-11] MEDS: PANTOPRAZOLE SODIUM 40 MG DR TABLET PO SCH (08:53)
[2016-09-11] MEDS: MEGESTROL ACETATE 400 MG/10 ML SUSPENSION UDCUP PO SCH ×2 (08:53→16:58)
[2016-09-11 17:00] VITALS: BP 119/68
[2016-09-11] MEDS: OLANZapine 10 MG TABLET PO SCH (20:39)
[2016-09-11] MEDS: LITHIUM CARBONATE 300 MG CAPSULE PO SCH (20:39)
[2016-09-11] MEDS: DIVALPROEX SODIUM 500 MG DR TABLET PO SCH (20:40)
[2016-09-12] MEDS: PANTOPRAZOLE SODIUM 40 MG DR TABLET PO SCH (08:15)
[2016-09-12] MEDS: MEGESTROL ACETATE 400 MG/10 ML SUSPENSION UDCUP PO SCH ×2 (08:15→17:04)
[2016-09-12 08:30] VITALS: BP 118/75
[2016-09-12 16:42] VITALS: BP 127/71
[2016-09-12] MEDS: DIVALPROEX SODIUM 500 MG DR TABLET PO SCH (20:11)
[2016-09-12] MEDS: LITHIUM CARBONATE 300 MG CAPSULE PO SCH (20:11)
[2016-09-12] MEDS: OLANZapine 10 MG TABLET PO SCH (20:12)
[2016-09-12] MEDS: ZOLPIDEM TARTRATE 10 MG TABLET PO PRN (21:16)
[2016-09-13 08:00] VITALS: BP 133/76
[2016-09-13] MEDS: PANTOPRAZOLE SODIUM 40 MG DR TABLET PO SCH (08:06)
[2016-09-13] MEDS: MEGESTROL ACETATE 400 MG/10 ML SUSPENSION UDCUP PO SCH ×2 (08:06→16:17)
[2016-09-13] MEDS: DIVALPROEX SODIUM 500 MG DR TABLET PO SCH (20:22)
[2016-09-13] MEDS: LITHIUM CARBONATE 300 MG CAPSULE PO SCH (20:22)
[2016-09-13] MEDS: OLANZapine 10 MG TABLET PO SCH (20:22)
[2016-09-14 08:00] VITALS: BP 125/72
[2016-09-14] MEDS: MEGESTROL ACETATE 400 MG/10 ML SUSPENSION UDCUP PO SCH ×2 (08:32→16:19)
[2016-09-14] MEDS: PANTOPRAZOLE SODIUM 40 MG DR TABLET PO SCH (08:32)
[2016-09-14 16:00] VITALS: BP 117/78
[2016-09-14] MEDS: DIVALPROEX SODIUM 500 MG DR TABLET PO SCH (20:26)
[2016-09-14] MEDS: OLANZapine 10 MG TABLET PO SCH (20:27)
[2016-09-14] MEDS: LITHIUM CARBONATE 300 MG CAPSULE PO SCH (20:27)
[2016-09-15 01:57] VITALS: BP 122/70
[2016-09-15] MEDS: ZOLPIDEM TARTRATE 10 MG TABLET PO PRN (03:03)
[2016-09-15 08:09] VITALS: BP 119/74
[2016-09-15] MEDS: PANTOPRAZOLE SODIUM 40 MG DR TABLET PO SCH (08:10)
[2016-09-15] MEDS: MEGESTROL ACETATE 400 MG/10 ML SUSPENSION UDCUP PO SCH ×2 (08:10→16:24)
[2016-09-15 17:00] VITALS: BP 126/75
[2016-09-15] MEDS: DIVALPROEX SODIUM 500 MG DR TABLET PO SCH (20:27)
[2016-09-15] MEDS: LITHIUM CARBONATE 300 MG CAPSULE PO SCH (20:27)
[2016-09-15] MEDS: OLANZapine 10 MG TABLET PO SCH (20:27)
[2016-09-16 08:08] VITALS: BP 131/78
[2016-09-16] MEDS: MEGESTROL ACETATE 400 MG/10 ML SUSPENSION UDCUP PO SCH ×2 (08:14→16:14)
[2016-09-16] MEDS: PANTOPRAZOLE SODIUM 40 MG DR TABLET PO SCH (08:14)
[2016-09-16 18:33] VITALS: BP 102/66
[2016-09-16] MEDS: DIVALPROEX SODIUM 500 MG DR TABLET PO SCH (20:09)
[2016-09-16] MEDS: OLANZapine 10 MG TABLET PO SCH (20:09)
[2016-09-16] MEDS: LITHIUM CARBONATE 300 MG CAPSULE PO SCH (20:09)
[2016-09-17 08:09] VITALS: BP 108/57
[2016-09-17] MEDS: MEGESTROL ACETATE 400 MG/10 ML SUSPENSION UDCUP PO SCH (08:27)
[2016-09-17] MEDS: PANTOPRAZOLE SODIUM 40 MG DR TABLET PO SCH (08:27)
== END 2016-09-17 15:05 | disposition home or self-care (01) | DRG 750 ==
LOC: 3EX 17:27
PROVIDERS: ADMIT Psychiatry & Neurology Psychiatry; ATTEND Psychiatry & Neurology Psychiatry
DX: F25.1 Schizoaffective disorder, depressive type (principal); E43 Unspecified severe protein-calorie malnutrition; I10 Essential (primary) hypertension; J44.9 Chronic obstructive pulmonary disease, unspecified; K21.9 Gastro-esophageal reflux disease without esophagitis; E78.5 Hyperlipidemia, unspecified; Z85.89 Personal history of malignant neoplasm of other organs and systems; Z85.828 Personal history of other malignant neoplasm of skin; Z96.649 Presence of unspecified artificial hip joint; F29 Unspecified psychosis not due to a substance or known physiological condition; L29.9 Pruritus, unspecified
CPT/HCPCS: 87081

== ENCOUNTER 2017-08-01 20:17 | Emergency (ER) | payer MEDICARE, OTHER ==
[~2017-08-01] VITALS: Ht 170.2 cm; Wt 56.8 kg
[~2017-08-01 20:17] MED LIST changes: -ACET-2247 PO; +AMLO-511 PO; +ARIP10TA8 PO; -DIVA500T35 PO; +FERR-89 PO; -LITH300C3 PO; +MIRT30 PO; -OLAN10TA3 PO
[2017-08-01 22:15] VITALS: BP 119/86
[2017-08-05] MEDS ORDERED: AMLO-511 PO (17:26)
[2017-08-05] MEDS ORDERED: MEGE400O4 PO (17:26)
[2017-08-05] MEDS ORDERED: PANT40TA25 PO (17:26)
[2017-08-05] MEDS ORDERED: FERR-89 PO (17:26)
== END 2017-08-01 22:12 | disposition home or self-care (01) ==
LOC: EMS 20:17
DX: E86.0 Dehydration (principal); I10 Essential (primary) hypertension
CPT/HCPCS: 82948; 99283